=== PATIENT | male | born 1975 | race African-American/Black ===

== ENCOUNTER 2016-07-09 10:39 | Emergency (ER) | payer MEDICAID, OTHER ==
[~2016-07-09] VITALS: Ht 182.9 cm; Wt 149.7 kg
[2016-07-09 18:05] VITALS: BP 145/74
== END 2016-07-09 18:22 | disposition home or self-care (01) ==
LOC: ER 10:45
DX: S46.011A Strain of muscle(s) and tendon(s) of the rotator cuff of right shoulder, initial encounter (principal); X58.XXXA Exposure to other specified factors, initial encounter; Y93.67 Activity, basketball; Y99.8 Other external cause status; Y92.89 Other specified places as the place of occurrence of the external cause
CPT/HCPCS: 29105; 73200